=== PATIENT | female | born 2005 | race Caucasian/White ===

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

== ENCOUNTER 2025-04-28 18:56 | Emergency (ER) | payer BC, SELFPAY ==
--- OUTSIDE RECORDS SUMMARY | 2025-04-28 19:01 | XMS_ITS | Clinical Summary ---
Author Organization [employer] [facility] Address [address] [place] [id number] Care Team Providers Care Customer Advocate Name Role Phone Daja Posada MD Primary Care Provider Allergies Active Allergy Reactions Criticality Noted Date Comments Kwamein C,Y,W-135 Vac,1 Of 2(Pf) Nausea And Vomiting,Hallucinations Medium 02/05/2023 Medications albuterol HFA (PRO-AIR; VENTOLIN; PROVENTIL) 90 mcg/actuation inhalerIndication s:Acute cough Inhale 2 Puffs by mouth every 4 hours if needed for Shortness of Breath 1st choice or Wheezing 2nd choice (cough). 1 Each 3 3 Active levonorgestrel-et hinyl estrad, 0.1mg-20mcg, (ALESSE-28) 0.1-20 mg-mcg tabletIndications :Encounter for initial prescription of contraceptive pills Take 1 Tablet by mouth once daily. 84 Tablet 4 4 Active sertraline (ZOLOFT) 100 mg tabletIndications :Anxiety and depression Take 2 Tablets (200 mg) by mouth once daily in the morning. 90 Tablet 5 Active sertraline 100 mg tabletIndications :Anxiety and depression Take 2 Tablets (200 mg) by mouth once daily in the morning. 180 Tablet 5 025 Discontin ued(Reord er (E-cancel not sent)) Active Problems Problem Noted Date Diagnosed Date Morbid obesity with BMI of 40.0-44.9, adult 07/12/2022 Moderate episode of recurrent major depressive d isorder 03/19/2021 Generalized anxiety disorder 02/05/2019 Resolved Problems Problem Noted Date Diagnosed Date Resolved Date Suicide attempt by devin williamson, subsequent encounter 11/05/2021 03/27/2022 Encounters Date Type Department Care Team Description 04/05/2025 Refill [facility] [email or web address] [address] [place] [address] Daja Posada MD Refill Request; SERTRALINE from Last 3 Months Immunizations Immunization Administration Dates Next Due AMB Influenza, IIV4 PF (=>6 mos Flulaval,Fluzone Fluarix)(Flu Clinic Only) 06/01/2014 COVID-19 vaccine (MOOIBio NTech 30mcg/0.3mL) 12YO+ BIVALENT PF, MDV 07/08/2022 COVID-19 vaccine ([place] group-Bio NTech 30mcg/0.3mL) PF, MDV 01/10/2021,12/20/2020 DTaP-HIB (TriHIBIT) 03/04/2006 MGxE-UfeY-VEL (Pediarix) 05/21/2005,03/21/2005,0 01/09/2005 DTaP-IPV (Kinrix) 03/29/2013 HIB PRP-OMP (PedvaxHIB) 01/09/2005 HPV 9 (Gardasil 9) 12/30/2018,10/01/2016 Hepatitis A (Peds) 11/30/2007,2006 INFLUENZA, IIV3 PF (AGE >= 6 MO) 08/05/2024 Influenza A (H1N1), Inactiva abebe (Age >=3 Years) 08/14/2009,07/14/2009 Influenza Virus, Unspecified 07/15/2016, 06/12/2015,06/26/2012,04/23 Influenza, IIV3 (Age 6-35 mos) 09/15/2006,2004,05/21/2005 Influenza, IIV3 (Age >=3 years) 06/29/2013,07/23 Influenza, IIV4 06/04/2023,07/08/2022 MENINGOCOCCAL VACCINE 2 VIAL 2MO-55YO (MENVEO) 01/22/2021,10/01/2016 MMR 03/29/2013 MMR, Unspecified 11/06/2005 Meningococcal B 02/03/2023 Pneumococcal conj 7-Valent (Prevnar 7) 0 03/04/2006,05/21/2005,03/21/2005,01/09 Tdap 10/01/2016 Varicella Vaccine 03/29/2013,11/06/2005 Family History Medical History Relation Name Comments Diabetes Father Good Health Mother Cancer-breast No Family History Cancer-colon No Family History Relation Name Status Comments Father Mother Social History Tobacco Use Types Packs/Day Years Used Date Smoking Tobacco: Never Smokeless Tobacco: Never Tobacco Cessation:Counseling Given: Yes Alcohol Use Standard Drinks/Week Comments Never 0 (1 standard drink = 0.6 oz pur e alcohol) PHQ-2 Answer Date Recorded PHQ-2 TOTAL SCORE 2 01/21/2024 Social Connections Answer Date Recorded Do you often feel lonely or isolated from those around you? 0 07/31/2024 Financial Resource Strain Answer Date R ecorded Difficulty of Paying Living Expenses 3 07/31/2024 Difficulty of Paying Living Expenses Not on file 07/31/2024 Food Insecurity Answer Date Recorded Do you worry your food will run out before you are able to buy more? 1 07/31/2024 Transportation Needs Answer Date Record ed Does lack of transportation keep you from medica l appointments? 1 07/31/2024 Does lack of transportation keep you from work, meetings or getting things that you need? 1 07/31/2024 Housing Stability Answer Date Recorded What is your housing situation today? 1 07/31/2024 Utilities Answer Date Recorded Do you have trouble paying f or utilities (for example, heat, electricity, water, phone)? 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 Gender Identity Not on file Sexual Orientation Not on file Obstetrics History Last Filed Vital Signs Vital Sign Reading Time Taken Comments Blood Pressure 112/75 08/05/2024 9:48 AM GUEST LAUNDRY ATTENDANT Pulse 67 08/05/2024 9:48 AM GUEST LAUNDRY ATTENDANT Temperature 36.7 C (98 F) 02/05/2023 10:20 AM CDT Respiratory Rate - - Oxygen Saturation 98% 08/05/2024 9:48 AM GUEST LAUNDRY ATTENDANT Inhaled Oxygen Concentration - - Weight 126.4 kg (278 lb 9.6 oz) 08/05/2024 9:48 AM GUEST LAUNDRY ATTENDANT Height 172.7 cm (5' 8) 08/05/2024 9:48 AM GUEST LAUNDRY ATTENDANT Body Mass Index 42.36 08/05/2024 9:48 AM GUEST LAUNDRY ATTENDANT Plan of Treatment Health Maintenance Due Date Last Done Comments Well Child Check for age 3-20 02/04/2024 02/03/2023, 01/22/2021, 12/29/2018, Additional history exists Depression screening for age 12+ 01/20/2025 01/21/2024, 10/22/2023, 06/04/2023, Additional history exists COVID-19 vaccine series (2024- season) 2025 07/08/2022, 07/26/2021, 01/10/2021, Additional history exists Influenza Vaccine (#1) 2025 , 06/04/2023, 07/08/2022, Additional history exists BMI (ht and wt on same day) for age 18+ 08/05/2025 08/05/2024, 01/21/2024, 06/04/2023, Additional history exists Tetanus booster 10/01/2026 10/01/2016 RSV vaccine for adults or (1 - 1-dose 75+ series) 11/05/2079 Hepatitis B series for 19+ Completed 05/21, 03/21/2005, 01/09/2005 Pneumococcal series for age 6-49 Aged Out 03/04/2006, 05/21/2005, 03/21/2005, Additional history exists No longer eligible based on patient's age to complete this topic HPV series for age 9-45 Completed 12/30/2018, 10/01 Meningococcal series for age 11-21 Completed 01/22/2021, 10/01/2016 HIV for age 15-65 Completed 02/03/2023 Hepatitis C screening for age 18-79 Completed 02/03/2023 Procedures Procedure Name Priority Date/Time Associated Diagnosis Comments LC HIV-1/O/2, 4TH GENERATION Routine 02/03/2023 4:06 PM CDT Screening for HIV (human immunodeficiency virus) LC HCV ANTIBODY RFX TO QUANT PCR Routine 02/03/2023 4:06 PM CDT Need for hepatitis C screening test from Last 3 Months or Most Recently Relevant to Health Maintenance Results * LC HCV ANTIBODY RFX TO QUANT PCR (02/03/2023 4:06 PM CDT) HCV Ab Non Reactive Non Reactive 02/07/2023 12:[address] [facility] ([facility]) Blood BLOOD SPECIMEN / Unknown Venipuncture / Unknown 02/03/2023 4:06 PM CDT 02/03/2023 4:07 PM CDT [facility] ([facility]) - 02/07/2023 12:08 PM CDT Performed at: [facility] [place] [id number] University Archivist: Josef Rodriguez MD, Phone: [phone] us Daja Posada MD LABORATORY Final R esult [facility] ([facility]) [address] [place] [id number], * LC HIV-1/O/2, 4TH GENERATION (02/03/2023 4:06 PM CDT) Pathologist [facility] HIV Scr 4th Gen Non Reactive Non Reactive 02/07/2023 11:[address] [facility] ([facility]) Comment: HIV Negative HIV-1/HIV-2 antibodies and HIV-1 p24 antigen were NOT detected. There is no laboratory evidence of HIV infection. Blood BLOOD SPECIMEN / Unknown Venipuncture / Unknown 02/03/2023 4:06 PM CDT 02/03/2023 4:07 PM CDT [facility] ([facility]) - 02/07/2023 11:09 AM CDT Performed at: [facility] [id number] University Archivist: Josef Rodriguez MD, Phone: [phone] Daja Posada MD LABORATORY Final R esult [facility] ([facility]) [address] [place] [phone], from Last 3 Months or Most Recently Relevant to Health Maintenance Insurance [employer]-ITS [id number] [place] [id number] Care Teams Customer Advocate Relationship Specialty Start Date End Date Daja Posada MD PCP - General Family Practice 01/26/13
[2025-04-28 19:10] VITALS: BP 105/67; PULSE 76; RESP 17; TEMP 36.6; O2SAT 98; BMI 41.5
[2025-04-28 19:28] LABS: Appearance Urine Clear (Clear)
[2025-04-28 19:30] LABS: Ur HCG Qualitative* Negative (Negative)
--- NOTE | 2025-04-28 19:33 | ED.GENADULT ---
HPI - General Adult General Chief complaint: Abdominal Pain Stated complaint: Stomach pain, sent by [facility] Time Seen by Provider: 04/28/25 19:23 Source: patient Mode of arrival: ambulatory Limitations: no limitations History of Present Illness HPI narrative: 19-year-old female presenting today with abdominal pain. Pain is been present for approximately 6 days. It comes and goes. Not associated with eating. she states that sometimes she can have a normal bowel movement, other days she has 1-2 loose stools. She has been feeling quite nauseated especially after eating, denies vomiting. She does feel hungry and wants to eat. She denies any fevers or chills. She states that the pain started in the left upper quadrant but now is mainly in the lower abdominal area. Moving Or car rides do not make the pain worse. she denies any urinary symptoms such as dysuria, increased urinary urgency or frequency. No blood in her stool, no dark tarry stools. patient is on control. Denies any recent surgeries. Denies pain with deep inspiration. Denies sexual activity. Related Data Home Medications ?Medication ?Instructions ?Recorded ?Confirmed sertraline 100 mg tablet 100 mg PO QDAY 05/22/22 04/28/25 Previous Rx's ?Medication ?Instructions ?Recorded albuterol sulfate 90 mcg/actuation 1 inh inhalation Q6-8H #6.7 grams 12/05/24 aerosol inhaler levonorgestrel-ethinyl estradiol 1 tab PO QDAY #84 tabs 12/05/24 0.1 mg-20 mcg tablet (Vienva) Allergies Allergy/AdvReac Type Severity Reaction Status Date / Time No Known Drug Allergies Allergy Verified 04/28/25 18:12 Review of Systems Status of ROS: Reports: 10 or more systems reviewed and unremarkable except as noted in History and below [facility] Medical History Right lower quadrant abdominal pain ?R10.31 - Right lower quadrant pain (ICD-10) Social History Smoking Status: Never smoker Exam Narrative: Exam Narrative: Overweight,well-developed patient in no acute distress. Alert and oriented. Answers questions appropriately. Mood and affect are appropriate. Thoughts are goal oriented and rational. No tangential or magical thinking noted. Patient speaks in full sentences without needing to catch her breath. HEENT: Normocephalic atraumatic. Pupils are equally round reactive to light. Extraocular muscles are intact. Conjunctivae are moist without any icterus noted. Moist mucous membranes. Cardiovascular: Heart is regular rate and rhythm S1 and S2 are present without any murmurs. Lungs: Clear to auscultation bilaterally no wheezes rhonchi or rales are appreciated. Patient takes deep breaths without any discomfort. Abdomen: soft and nondistended with normal bowel sounds. She has no rebound tenderness. She has suprapubic as well as lower right and left abdominal discomfort. She has no epigastric pain. She has no pain at McBurney's point. She has no pain in the upper quadrants. Extremities: Bilateral lower extremities are without edema. Skin: Well perfused without any obvious rashes. Const: Vital Signs, click to edit/add: Vital Signs - 24 hr 04/28/25 19:10 Temperature 98 F Pulse Rate [Pulse Oximeter] 76 Respiratory Rate 17 Blood Pressure [Ri ght Upper Arm] 105/67 Pulse Oximetry 98 Oxygen Delivery Me thod Room Air Course Course ED Course: etiology of her pain unclear at this time. Differential diagnoses includes ovarian cyst coming TI, ectopic , endometriosis, constipation, appendicitis. CBC is normal. UA is nondiagnostic. Normal lactate chemistries are normal. LFTs are normal. CRP is 1.2. Normal lipase. Normal procalcitonin. Pelvic ultrasound is unremarkable. Vital Signs Vital signs: Initial Vital Signs Temperature 98 F 04/28/25 19:10 Temperature Source Temporal Artery Scan 04/28/25 19:10 Pulse Rate 76 04/28/25 19:10 Respiratory Rate 17 04/28/25 19:10 Blood Pressure 105/67 04/28/25 19:10 Blood Pressure Mean 79 04/28/25 19:10 Blood Pressure Position Sitting 04/28/25 19:10 Pulse Oximetry 98 04/28/25 19:10 Oxygen Delivery Method Room Air 04/28/25 19:10 Vital Signs Temperature 98 F 04/28/25 19:10 Pulse Rate 76 04/28/25 19:10 Respiratory Rate 17 04/28/25 19:10 Blood Pressure 105/67 04/28/25 19:10 Pulse Oximetry 98 04/28/25 19:10 Oxygen Delivery Method Room Air 04/28/25 19:10 Temperature 98 F 04/28/25 19:10 Pulse Rate 76 04/28/25 19:10 Respiratory Rate 17 04/28/25 19:10 Blood Pressure 105/67 04/28/25 19:10 Pulse Oximetry 98 04/28/25 19:10 Oxygen Delivery Method Room Air 04/28/25 19:10 Medical Decision Making MDM Narrative Medical decision making narrative: 19-year-old female with pelvic pain of unclear etiology. Recommend returning to the ED if she develops fevers, vomiting or worsening pain. Do recommend she follow-up with OBGYN to discuss other causes of discomfort such as endometriosis. Lab Data Lab results reviewed: Yes I reviewed the patient's lab results Labs: Lab Results 04/28/25 04/28/25 Range/Units 19:17 19:37 WBC 7.43 (4.50-11.00) K/uL RBC 4.70 (4.00-5.20) m/uL Hgb 13.1 (12.0-16.0) gm/dL Hct 40.6 (33.0-51.0) % MCV 86 (80-100) fL MCH 28 (26-34) pg MCHC 32 (32-36) gm/dL RDW Coeff of [place]al[place] 13.6 (11.5-15.5) % Plt Count 309 (140-440) K/uL Neut % (Auto) 63.0 (42.0-72.0) % Lymph % (Auto) 26.1 (20-44) % [place] % (Auto) 7.9 (0.0-11.0) % Eos % (Auto) 2.2 (0.0-7.0) % Baso % (Auto) 0.7 (0.0-3.0) % Neut # (Auto) 4.68 (1.7-7.0) K/uL Lymph # (Auto) 1.94 (0.90-2.90) K/uL [place] # (Auto) 0.60 (0.00-0.90) K/UL Eos # (Auto) 0.16 (0.00-0.50) K/uL Baso # (Auto) 0.05 (0.00-0.30) K/uL Abs Immat Gran (auto) 0.01 (0.00-0.30) K/uL Imm/Tot Granulo (auto) 0.1 % Sodium 142 (135-149) mmol/L Potassium 3.8 (3.6-5.1) mmol/L Chloride 107 (96-114) mmol/L Carbon Dioxide 26 (20-32) mmol/L Anion Gap 9 (7-15) mEq/L BUN 6 (5-24) mg/dL Creatinine 0.6 (0.5-1.5) mg/dL Estimated Creat Clear 150.88 Estimated GFR 132 ml/min Glucose 93 (60-115) mg/dL Lactate 0.4 L (0.5-1.9) mmol/L Calcium 8.6 (8.4-10.6) mg/dL Total Bilirubin 0.4 (0.1-1.5) mg/dL Direct Bilirubin 0.2 (0.0-0.5) mg/dL AST 30 (12-35) U/L ALT 21 (4-35) U/L Alkaline Phosphatase 88 (40-150) U/L C-Reactive Protein 1.2 H (0.5-1.0) mg/dL Total Protein 7.3 (6.0-8.3) g/dL Albumin 4.2 (3.3-5.0) g/dL Lipase 26 (23-300) U/L Procalcitonin 0.05 (<0.50) ng/mL Urine Color Yellow (Yellow) Urine Appearance Clear (Clear) Urine pH 6.5 (5.0-8.5) Ur Specific [place] 1.025 (1.000-1.030) Urine Protein Trace A (Negative) Urine Glucose (UA) Negative (Negative) Urine Ketones Trace A (Negative) Urine Blood Negative (Negative) Urine Nitrite Negative (Negative) Urine Bilirubin Negative (Negative) Urine Urobilinogen 0.2 (0.2-1.0) Ur Leukocyte Esterase Negative (Negative) Urine RBC 0-2 (0-2) Urine WBC 0-2 (0-5) Ur Squamous Epith Cells Few (None-Few) Urine Bacteria Moderate A (None) Urine HCG, Qual Negative (Negative) Monoscreen Negative (Negative) Imaging Data US - abdomen: Attestation: I have reviewed the pertinent imaging results. Radiologist's impression: TECHNIQUE: Ultrasound pelvis transvaginal for better assessment or to better visualize the endometrium. Real-time sonographic images with spectral and color Doppler imaging of the ovaries were obtained. COMPARISON: None. FINDINGS: The uterus is normal in size measuring 5.7 x 2.6 x 3.2 cm without suspicious mass and normal-appearing myometrial echotexture. The endometrial stripe measures 0.5 cm without fluid or suspicious mass. The right ovary is normal in size measuring 3.7 x 1.9 x 2.2 cm without cyst or suspicious mass. The left ovary is normal in size measuring 3.3 x 2.1 x 1.7 cm without cyst or suspicious mass. The bilateral ovaries demonstrate preserved arterial and venous spectral Doppler waveforms. No free fluid evident. IMPRESSION: Unremarkable sonographic examination of the pelvis. Discharge Plan Discharge Clinical Impression: Abdominal pain Patient Disposition: Home, Self-Care Condition: Stable Additional Instructions: Causes of lower abdominal discomfort include cramping of the colon or things such as endometriosis. If your pain continues despite ibuprofen, rest, or heat to the abdominal wall, then I would recommend you follow-up with OBGYN to pursue further workup. Return to the emergency department if you develop vomiting, fevers or worsening pain. Apply heat to the abdominal wall for 20 minutes at a time. Do not apply heat directly to the skin. Prescriptions: No Action sertraline 100 mg tablet 100 mg PO QDAY levonorgestrel-ethinyl estrad [Vienva] 0.1-20 mg-mcg tablet 1 tab PO QDAY Qty: 84 0RF albuterol sulfate 90 mcg/actuation HFA aerosol inhaler 1 inh inhalation Q6-8H Qty: 6.7 0RF Follow Up/Referrals: Mao Ventura MD [Staff Physician, Internal Medicine] Stand Alone Forms: [facility] Info Instructions
--- NOTE | 2025-04-28 19:46 | CRLHL7_ITS ---
For Patients: As a result of the Century Cures Act, medical imaging exams and procedure reports are released immediately into your electronic medical record. You may view this report before your referring provider. If you have questions, please contact your health care provider. INDICATION: Bilateral pelvic pain. TECHNIQUE: Ultrasound pelvis transvaginal for better assessment or to better visualize the endometrium. Real-time sonographic images with spectral and color Doppler imaging of the ovaries were obtained. COMPARISON: None. FINDINGS: The uterus is normal in size measuring 5.7 x 2.6 x 3.2 cm without suspicious mass and normal-appearing myometrial echotexture. The endometrial stripe measures 0.5 cm without fluid or suspicious mass. The right ovary is normal in size measuring 3.7 x 1.9 x 2.2 cm without cyst or suspicious mass. The left ovary is normal in size measuring 3.3 x 2.1 x 1.7 cm without cyst or suspicious mass. The bilateral ovaries demonstrate preserved arterial and venous spectral Doppler waveforms. No free fluid evident. IMPRESSION: Unremarkable sonographic examination of the pelvis. Dictated by Augie Giron MD @ 04/28/2025 9:07:16 PM (Electronically Signed)
[2025-04-28 19:51] LABS: Lactate* 0.4 mmol/L (0.5-1.9)
[2025-04-28 19:58] LABS: Mono Screen* Negative (Negative)
[2025-04-28 20:09] LABS: Hematocrit* 40.6 % (33.0-51.0); Hemoglobin* 13.1 gm/dL (12.0-16.0); Immature Granulocytes Abs Auto 0.01 K/uL (0.00-0.30); Immature Granulocytes Pct Auto 0.1 %; Lymphocytes Absolute Auto 1.94 K/uL (0.90-2.90); Mean Corpuscular HGB Conc 32 gm/dL (32-36); Mean Corpuscular Hemoglobin 28 pg (26-34); Mean Corpuscular Volume 86 fL (80-100); RDW Coefficient of Variation % 13.6 % (11.5-15.5); Red Blood Count* 4.70 m/uL (4.00-5.20); White Blood Count* 7.43 K/uL (4.50-11.00)
[2025-04-28 20:11] LABS: Slide Review Reflex No
[2025-04-28 20:13] LABS: Albumin* 4.2 g/dL (3.3-5.0)
[2025-04-28 20:14] LABS: Chloride* 107 mmol/L (96-114); Potassium* 3.8 mmol/L (3.6-5.1); Sodium* 142 mmol/L (135-149)
[2025-04-28 20:16] LABS: Blood Urea Nitrogen* 6 mg/dL (5-24); Creatinine* 0.6 mg/dL (0.5-1.5); Est. Creatinine Clearance* 150.88; Estimated Glomerular Filt Rate 132 ml/min
[2025-04-28 20:17] LABS: Alanine Aminotransferase* 21 U/L (4-35); Alkaline Phosphatase* 88 U/L (40-150); Anion Gap 9 mEq/L (7-15); Aspartate Amino Transferase* 30 U/L (12-35); Bilirubin Direct* 0.2 mg/dL (0.0-0.5); Bilirubin Total* 0.4 mg/dL (0.1-1.5); Calcium* 8.6 mg/dL (8.4-10.6); Carbon Dioxide* 26 mmol/L (20-32); Glucose* 93 mg/dL (60-115); Total Protein* 7.3 g/dL (6.0-8.3)
[2025-04-28 20:33] LABS: Procalcitonin* 0.05 ng/mL (<0.50)
== END 2025-04-28 22:03 | disposition home or self-care (01) ==
PROVIDERS: Emergency Provider Family Medicine; PCP Family Medicine
DX: R10.30 Lower abdominal pain, unspecified (principal)
CPT/HCPCS: 36415; 76830; 80048; 80076; 81001; 81025; 83605; 83690; 84145; 85025; 86140; 86308; 87086; 93976; 99283; 99284